=== PATIENT | female | born 1995 | race Two or more races ===

== ENCOUNTER 2022-10-18 12:48 | Emergency (ER) | payer OTHER ==
[~2022-10-18] VITALS: Ht 160 cm; Wt 71.2 kg
[2022-10-18] MEDS ORDERED: ADIPEX-P37.5 MG PO (13:06)
== END 2022-10-18 17:34 | disposition home or self-care (01) ==
LOC: ER 12:48
DX: R10.9 Unspecified abdominal pain (principal)